=== PATIENT | female | born 2000 | race Caucasian/White ===

== ENCOUNTER 2022-04-01 19:08 | Emergency (ER) | payer OTHER, SELFPAY ==
[2022-04-01 19:21] VITALS: BP 120/71; PULSE 95; RESP 14; TEMP 36.6; O2SAT 96
--- NOTE | 2022-04-01 19:30 | ED.ABDPAIN ---
HPI - Abdominal Pain General Chief Complaint: Abdominal Pain Stated Complaint: stomach pain Time Seen by Provider: 04/01/22 19:11 History of Present Illness HPI narrative: This is a 22-year-old female, who denies past medical history, presenting to the emergency department complaining of abdominal pain and nausea today. She states the pain is cramping, at maximum 7/10 without radiation and located primarily in the epigastrium. She states she has had 5-7 episodes of loose stools without blood. She also complains of dysuria. She states her boyfriend and his family had similar symptoms approximately 1 week ago and were diagnosed with a viral infection. She has no other complaints today. Related Data Allergies Allergy/AdvReac Type Severity Reaction Status Date / Time NSAIDS (Non-Steroidal Allergy Anaphylaxis Verified 04/01/22 19:23 Anti-Inflamma Review of Systems Review of Systems: CONSTITUTIONAL: Denies fever, chills, or sweats. ENT: Denies rhinorrhea, congestion, sore throat, or otalgia. CARDIOVASCULAR: Denies chest pain, palpitations, or edema. RESPIRATORY: Denies cough or dyspnea. GASTROINTESTINAL: Abdominal cramping, loose stools, nausea denies vomiting GENITOURINARY: LMP one week ago, Dysuria Denies hematuria. SKIN: Denies rash or itching. MUSCULOSKELETAL: Denies back pain, joint pain, or myalgia. NEUROLOGIC: Denies headache, numbness, dizziness, or weakness. PSYCHIATRIC: Denies anxiety or depression. [facility] Social History Social History (Updated 04/01/22 @ 20:11 by Hector Munoz MD) Smoking status: Never smoker Substance use: never Exam Narrative: GENERAL: Well-developed, well-nourished, and in no acute distress. Appears somewhat uncomfortable. HEAD: Normocephalic, atraumatic. EYES: PERRLA and EOMI. ENT: Nares clear, no rhinorrhea or epistaxis. Mucous membranes moist. Oropharynx without tonsillar hypertrophy exudate or other lesions. CHEST: Clear to auscultation. No respiratory distress. No wheezes rales or rhonchi HEART: Regular rate and rhythm. No murmur heard. Normal peripheral pulses. ABDOMEN: Soft, nontender, nondistended, normal active bowel sounds. Rovsing's sign negative. EXTREMITIES: Normal range of motion. No edema. SKIN: Warm, dry, no rash. NEURO: No focal deficits. Alert and oriented x3. PSYCH: Normal mood and affect. Course Course Emergency Course: 19:51 - UA unremarkable. Discussed return and emergency precautions including signs/symptoms of intractable vomiting and appendicitis. Will discharge with Zofran and recommendation for primary care follow-up. The patient voiced understanding and is comfortable with the plan. All questions answered to her satisfaction Vital Signs Vital signs: Vital Signs Temperature 97.8 F 04/01/22 19:21 Pulse Rate 95 04/01/22 19:21 Respiratory Rate 14 04/01/22 19:21 Blood Pressure 120/71 04/01/22 19:21 Pulse Oximetry 96 04/01/22 19:21 Oxygen Delivery Room Air 04/01/22 19:21 Temperature 97.8 F 04/01/22 19:21 Pulse Rate 74 04/01/22 20:02 Respiratory Rate 20 04/01/22 20:02 Blood Pressure 122/74 04/01/22 20:02 Pulse Oximetry 95 04/01/22 20:02 Oxygen Delivery Room Air 04/01/22 19:21 MDM - Abdominal Pain MDM Narrative Medical decision making narrative: Plan: Labs, pain control, antiemetics, reassess Differential Diagnosis Differential diagnosis: Likely gastroenteritis and other (UTI, other) Lab Data Labs: Lab Results 04/01/22 Range/Units 19:43 Urine Color Light yellow (Yellow) Urine Appearance Clear (Clear) Urine pH 6.5 (5.0-8.0) Ur Specific [place] 1.025 H (1.010-1.020) Urine Protein Negative (Negative) Urine Glucose (UA) Negative (Negative) Urine Ketones Negative (Negative) Ur Blood (Man) Negative (Negative) Urine Nitrate Negative (Negative) Urine Bilirubin Negative (Negative) Urine Urobilinogen 0.2 (0.2-1.0) mg/dL Leukocyte Esterase Rfl N
[2022-04-01] MEDS: ONDANSETRON HCL ODT 4 MG TABLET PO (19:33)
[2022-04-01] MEDS: ACETAMINOPHEN 500 MG TABLET 1000 MG PO (19:33)
[2022-04-01 19:46] LABS: Appearance Urine Clear (Clear); Bilirubin Urine Negative (Negative); Blood Urine Negative (Negative); Color Urine Light Yellow (Yellow); Glucose Urine UA Negative (Negative); Ketones Urine Negative (Negative); Leukocyte Esterase Ur Negative LEU/UL (Negative); Nitrate Urine Negative (Negative); Protein Urine Negative (Negative); Specific Grav Ur 1.025 (1.010-1.020); Urobilinogen Urine 0.2 mg/dL (0.2-1.0); pH Urine 6.5 (5.0-8.0)
[2022-04-01 19:47] LABS: Add Urine Microscopic? NO
[2022-04-01 20:02] VITALS: BP 122/74; PULSE 74; RESP 20; O2SAT 95
== END 2022-04-01 20:03 | disposition home or self-care (01) ==
PROVIDERS: Emergency Provider Preventive Medicine Aerospace Medicine
DX: K52.9 Noninfective gastroenteritis and colitis, unspecified (principal)
CPT/HCPCS: 81003; 99283; A9270

== ENCOUNTER 2022-07-04 05:47 | Emergency (ER) | payer OTHER, SELFPAY ==
[2022-07-04 06:10] VITALS: BP 122/81; PULSE 99; RESP 22; TEMP 37.2; O2SAT 98
--- NOTE | 2022-07-04 06:10 | ECG_ITS ---
Measurements Intervals [place] Rate: 90 P: 56 ID: 120 QRS: 86 QRSD: 85 T: 52 QT: 356 QTc: 437 Interpretive Statements SINUS RHYTHM POSSIBLE LEFT ATRIAL ENLARGEMENT INCOMPLETE RIGHT BUNDLE BRANCH BLOCK BASELINE ARTIFACT- II, III, AVR, AVL, AVF, V3-V6 BORDERLINE ECG NO PREVIOUS ECG AVAILABLE FOR COMPARISON Electronically Signed On 07-04-2022 8:24:33 CDT by Alberto Liang D.O.
--- NOTE | 2022-07-04 06:14 | ED.GENADULT ---
HPI - General Adult General Chief complaint: Psychiatric Symptoms <Efren Escalante MD - Last Filed: 07/07/22 07:16> Stated complaint: Psych <Efren Escalante MD - Last Filed: 07/07/22 07:16> Time Seen by Provider: 07/04/22 06:10 <Efren Escalante MD - Last Filed: 07/07/22 07:16> History of Present Illness HPI narrative: The patient is a 22-year-old woman with a history of depression, anxiety, and bulimia. She presents to the emergency room due to having thoughts about hurting herself. She has active visions of seeing herself hanging. Denies homicidal ideation. No visual hallucinations. Does have auditory hallucinations, hearing banging . No somatic complaints. <Efren Escalante MD - Last Filed: 07/07/22 07:16> Related Data Allergies/adverse reactions: Allergies Allergy/AdvReac Type Severity Reaction Status Date / Time NSAIDS (Non-Steroidal Allergy Anaphylaxis Verified 07/04/22 06:33 Anti-Inflamma <Efren Escalante MD - Last Filed: 07/07/22 07:16> Review of Systems Review of Systems: All systems reviewed & are unremarkable except as noted in HPI and below <Efren Escalante MD - Last Filed: 07/07/22 07:16> Constitutional: Constitutional: Denies chills, Denies excessive sweating, Denies fatigue, Denies fever(s), Denies headache(s) and Denies weakness <Efren Escalante MD - Last Filed: 07/07/22 07:16> Eyes: Eyes: Denies change in vision and Denies photophobia <Efren Escalante MD - Last Filed: 07/07/22 07:16> ENT: Denies dysphagia, Denies dizziness, Denies headache(s), Denies lip swelling, Denies nasal congestion, Denies sore throat and Denies tongue swelling <Efren Escalante MD - Last Filed: 07/07/22 07:16> Cardiovascular: Cardiovascular: Denies chest pain, Denies syncope, Denies rapid heart rate and Denies dyspnea <Efren Escalante MD - Last Filed: 07/07/22 07:16> Respiratory: Respiratory: Denies cough, Denies dyspnea and Denies wheezing <Efren Escalante MD - Last Filed: 07/07/22 07:16> Gastrointestinal: Gastrointestinal: Denies abdominal pain, Denies constipation, Denies dysphagia, Denies diarrhea, Denies nausea and Denies vomiting <Efren Escalante MD - Last Filed: 07/07/22 07:16> Genitourinary: Genitourinary: Denies hematuria, Denies urinary frequency, Denies dysuria and Denies urinary urgency <Efren Escalante MD - Last Filed: 07/07/22 07:16> Musculoskeletal: Musculoskeletal: Denies back pain, Denies myalgias, Denies arthralgias, Denies joint swelling and Denies numbness <Efren Escalante MD - Last Filed: 07/07/22 07:16> Integumentary/Breasts: Skin/Breast: Denies pruritus, Denies erythema and Denies rash <Efren Escalante MD - Last Filed: 07/07/22 07:16> Neurologic: Denies confusion, Denies dizziness, Denies syncope, Denies headache(s), Denies focal weakness, Denies numbness and Denies weakness <Efren Escalante MD - Last Filed: 07/07/22 07:16> Psychiatric: Psychiatric: Reports anxiety, Denies confusion, Reports depression, Denies homicidal ideation and Reports suicidal ideation <Efren Escalante MD - Last Filed: 07/07/22 07:16> Endocrine: Endocrine: Denies excessive sweating and Denies fatigue <Efren Escalante MD - Last Filed: 07/07/22 07:16> Hematologic/Lymphatic: Hematologic/Lymphatic: Denies easy bleeding and Denies easy bruising <Efren Escalante MD - Last Filed: 07/07/22 07:16> Allergic/Immunologic: Allergic/Immunologic: Denies lip swelling, Denies tongue swelling and Denies wheezing <Efren Escalante MD - Last Filed: 07/07/22 07:16> [facility] Social History Social History: Social History Smoking status: Never smoker Substance use: never Substance use type: marijuana <Efren Escalante MD - Last Filed: 07/07/22 07:16> Exam Const: General: healthy appearing, no acute distress, alert and well nourished <Efren Escalante MD - Last Filed: 07/07/22 07:16> Nutritional Appearance: well nourished <Efren Chaudhry
[2022-07-04 06:29] LABS: Basophils Absolute Auto 0.05 K/mm3 (0.00-0.10); Basophils Percent Auto 0.6 % (0.0-1.0); Eosinophils Absolute Auto 0.15 K/mm3 (0.02-0.50); Eosinophils Percent Auto 1.9 % (1.0-6.0); Hematocrit 40.9 % (35.0-49.0); Hemoglobin 13.9 g/dL (12.0-15.0); Immature Granulocyte Absolute 0.02 K/mm3 (0.00-0.00); Immature Granulocyte Percent A 0.2 % (0.0-0.0); Lymphocytes Absolute Auto 2.15 K/mm3 (1.10-4.50); Lymphocytes Percent Auto 26.6 % (18.0-42.0); Mean Corpuscular Hemoglobin 31.3 pg (27.0-31.0); Mean Corpuscular Volume 92.1 fL (78.0-102.0); Mean Platelet Volume 10.5 fl (9.2-11.8); Monocytes Absolute Auto 0.49 K/mm3 (0.10-0.90); Monocytes Percent Auto 6.1 % (2.0-11.0); Neutrophils Absolute Auto 5.2 K/mm3 (1.7-7.2); Neutrophils Percent Auto 64.6 % (50.0-70.0); Platelet Count Result 231 K/mm3 (150-420); Red Blood Count 4.44 M/mm3 (4.20-5.40); Red Cell Distribution Width 11.8 % (11.6-14.4); White Blood Count 8.1 K/mm3 (4.8-10.8)
--- NOTE | 2022-07-04 06:29 | PC.NURSE ---
Approximately 15 scratch rae on left forearm; lengths vary from approximately 2cm to 15cm. no visible bleeding at this time.
--- NOTE | 2022-07-04 06:30 | PC.NURSE ---
I am having suicidal thoughts. I am seeing myself hanging. It started about a week ago and has been getting worse. I have had suicidal thoughts in the past - August 2021. I have dream like visions of where I am hanging and I will get up to do it but I stop myself from doing it. The visions are of me going outside, tying my sweater around a branch and hanging myself. I have thought about using cables that are in the garage to hang myself. I was so worked up and mad that I could not see straight so I took a rock and scratched my arm to calm myself down.? I feel safe when I am with my boyfriend and his family. I do not feel safe when I am alone.
[2022-07-04 06:52] LABS: Ethanol < 3 mg/dL (0-6); Magnesium 1.9 mg/dL (1.8-2.4); SPREG INTERNAL CONTROL Positive; Serum Qual hCG Negative
[2022-07-04 06:55] LABS: Alanine Aminotransferase 16 U/L (14-59); Alkaline Phosphatase 60 U/L (46-116); Anion Gap 12 mmol/L (8-16); Aspartate Amino Transferase 14 U/L (15-37); Bilirubin,Total 0.5 mg/dL (0.00-1.00); Blood Urea Nitrogen 12 mg/dL (7-18); Calcium 8.8 mg/dL (8.5-10.1); Carbon Dioxide 25 mmol/L (21-32); Chloride 104 mmol/L (98-108); Estimated CRCL calculation 59 ml/min; Estimated Glomerular Filt Rate > 60; Glucose 90 mg/dL (70-99); Osmolality Calculated 291 mOsm/kg (285-295); Potassium 3.3 mmol/L (3.5-5.1); Sodium 141 mmol/L (136-145)
[2022-07-04 06:57] LABS: Acetaminophen < 2 ug/mL (10-30)
[2022-07-04] MEDS: POTASSIUM BICARBONATE 25 MEQ TABEF 50 MEQ PO (07:09)
[2022-07-04 07:11] LABS: Influenza A QL RT-PCR Negative (Negative); Influenza B QL RT-PCR Negative (Negative); RSV RNA, RT-PCR Negative (Negative); SARS-CoV-2 RNA PCR Negative (Negative)
[2022-07-04 07:18] LABS: Appearance Urine Clear (Clear); Bilirubin Urine 1+ (Negative); Blood Urine Negative (Negative); Color Urine Yellow (Yellow); Glucose Urine UA Negative (Negative); Ketones Urine 2+ (Negative); Leukocyte Esterase Ur 1+ LEU/UL (Negative); Nitrate Urine Negative (Negative); Protein Urine Negative (Negative); Specific Grav Ur 1.025 (1.010-1.020); Urobilinogen Urine 0.2 mg/dL (0.2-1.0)
[2022-07-04 07:18] LABS: Salicylate 3.1 mg/dL (2.8-20.0)
[2022-07-04 07:22] LABS: Add Urine Microscopic? YES; Bacteria Urine 2+ /hpf; RBC Urine None seen /hpf (0-2); Squamous Epithelial Cell Urine Moderate /hpf (Few)
[2022-07-04 07:23] LABS: Mucus Urine Few /lpf
[2022-07-04 07:25] LABS: Amphetamine Screen Urine Negative (Negative); Barbiturate Screen Urine Negative (Negative); Benzodiazepines Screen Urine Positive (Negative); Cannabinoid Screen Urine Positive (Negative); Cocaine Screen Urine Negative (Negative); Methadone Screen Urine Negative (Negative); Opiate Screen Urine Negative (Negative); Phencyclidine Screen Urine Negative (Negative)
[2022-07-04] MEDS: NICOTINE (*PBKC) 21 MG PATCH 1 PATCH TRANSDERM (07:58)
[2022-07-04] MEDS: NITROFURANTOIN MONOHYD MACROCR 100 MG CAP PO (07:58)
--- NOTE | 2022-07-04 08:01 | PC.NURSE ---
patient provided breakfast tray. sitter at bedside.
[2022-07-04] MEDS: ONDANSETRON HCL ODT 4 MG TABLET PO (08:07)
--- NOTE | 2022-07-04 09:46 | PC.NURSE ---
[id number] arrived at [place] for patient evaluation
--- NOTE | 2022-07-04 11:00 | PC.NURSE ---
nell hines done with her assessment, stepped out of room to call supervisor residential, sitter back at bedside.
--- NOTE | 2022-07-04 11:15 | PC.NURSE ---
nell hines back in room with patient working on safety plan.
[2022-07-04 11:54] VITALS: BP 114/70; PULSE 75; RESP 16; TEMP 36.7; O2SAT 97
--- NOTE | 2022-07-06 17:15 | PC.NURSE ---
Final Urine Culture Report resulted, Per ERP Dr. Haskins, No treatment needed.
== END 2022-07-04 11:54 | disposition home or self-care (01) ==
PROVIDERS: Emergency Medicine; Emergency Provider Emergency Medicine
DX: F41.8 Other specified anxiety disorders (principal); Z20.822 Contact with and (suspected) exposure to COVID-19
CPT/HCPCS: 36415; 80053; 80307; 81001; 83735; 84443; 84703; 85025; 87077; 87086; 87088; 87637; 93005; 99284; A9270